=== PATIENT | female | born 1955 | race Caucasian/White ===

== ENCOUNTER 2016-09-13 15:54 | Inpatient (IN) | payer OTHER ==
--- NOTE | ~2016-09-13 | HP ---
History And Physical [address] [address] NAME: SHAHRAM JI : 57 STATUS : ADM IN [facility]#: [id number] AGE: 61 ADM/REG DATE : 09/13/16 MR#: [id number] REPORT SERV DATE: 09/13/16 DICTATED BY: DUNIA MELÉNDEZ DATE: 09/13/16 REPORT STATUS : Draft TRANSCRIBED BY: MODJazmin DATE: 09/13/16 DATE OF ADMISSION: 09/13/2016 CHIEF COMPLAINT: Increased shortness of breath, productive cough. HISTORY OF PRESENT ILLNESS: This patient is a 61-year-old female, who presented in [facility]'s emergency room with complaints of increased shortness of breath, stating recently diagnosed with pneumonia, completed two weeks of Levaquin and continued to have fever and chills, productive cough, shortness of breath, occasional chest pain, nausea. Denies vomiting. Does state that she has a headache and body aches. Does state that she is O2 dependent at home anywhere from 2-4 L on nasal cannula, at this time has had to increase to 4 L at home. Does state that she has had lightheadedness. The patient does present with a history of squamous cell carcinoma of the lung, stage IV. The patient is under the care of Dr. Martinez of [place], Oncology. Does state that she is on a clinical trial, last taken approximately three to four weeks prior to this admission. Does state that most recent CT of the chest approximately two to three weeks in Dr. Martinez's office. PAST MEDICAL HISTORY: 1. L5 compression fracture. 2. Squamous cell carcinoma of the lung, stage IV. 3. Chronic obstructive pulmonary disease. 4. Hypothyroidism. 5. Cardiomyopathy. 6. Transient ischemic attack. 7. Coronary artery disease, last echo in December 2014. Ejection fraction of 30% to 35%. PAST SURGICAL HISTORY: 1. Pacemaker. 2. AICD. 3. Colostomy for bowel obstruction secondary to adhesions. 4. Sigmoid colon torsion requiring hospitalization. 5. Hysterectomy. 6. Cholecystectomy. 7. Bronchoscopy. 8. Left thoracoscopy with left lower lobe superior segment bullectomy. ALLERGIES: 1. SULFA. 2. CLINDAMYCIN. 3. CODEINE. 4. TAXOL. 5. PHENERGAN. SOCIAL HISTORY: , previously smoked, quit in 2013. Occasional alcohol use. Denies illicit drug use. History And Physical [address] [address] NAME: SHAHRAM JI : 57 STATUS : ADM IN PAT#: [id number] AGE: 61 ADM/REG DATE : 09/13/16 MR#: [id number] REPORT SERV DATE: 09/13/16 DICTATED BY: DUNIA MELÉNDEZ DATE: 09/13/16 REPORT STATUS : Draft TRANSCRIBED BY: JOB DATE: 09/13/16 FAMILY HISTORY: The patient has a father, of colon cancer. Sister of lung cancer. Mother of liver cancer. REVIEW OF SYSTEMS: Otherwise negative review of system, except what is listed above. PHYSICAL EXAMINATION: VITAL SIGNS: Blood pressure 90/51, pulse is 129, respirations 16, and O2 saturation 98% on 2 L. GENERAL: This patient is alert and oriented x3, in no acute distress. HEENT: Oral mucous membranes are moist. Oropharynx is clear. NECK: No JVD distention. CHEST: Lungs diminished. No rhonchi. No wheezes. No rales. CARDIAC: The patient is tachycardic. ABDOMEN: Soft, nondistended. Bowel sounds are active. EXTREMITIES: No clubbing, cyanosis, or edema. NEUROLOGICAL: The patient is alert and oriented x3. IMAGING: Chest x-ray, stable left perihilar fibrosis/mass with trace left pleural fluid or pleural thickening. There is also a stable bullous lesion at the left lung apex. Minimum right basilar atelectasis. Otherwise right lung appears grossly clear. Stable left-sided AICD device and right chest Port-A-Cath device. LABORATORY DATA: WBC is 21.7, hemoglobin 12.1, hematocrit 36.7, platelet count is 394, lactate is 1.17. BNP is 37.3, procalcitonin is 0.11. Sodium is 135, potassium is 4.1, chloride is 99, carbon dioxide is 28, BUN is 10, creatinine 0.72, glucose is 116, calcium is 9.4, magnesium is 1.6. Troponin is less than 0.02. Influenza A and B negative. Urinalysis: Hazy appearance, leukocyte large, rbc 4, wbc 64, bacteria occasional. IMPRESSION AND PLAN: 1. Sepsis. The patient will be admitted to the hospital. The patient will be started on cefepime 1 g IV every six hours. Cultures will be obtained. CT of the chest will also be obtained. 2. Community-acquired pneumonia. The patient does state that she has been treated for approximately two weeks on Levaquin for pneumonia. We will change antibiotic to cefepime and continue to monitor. 3. Squamous cell carcinoma of the lung stage IV. The patient is followed by Dr. Martinez. Currently on a clinical trial. We will consult Dr. Martinez to follow patient during this hospital stay. 4. Chronic obstructive pulmonary disease. We will continue to monitor the patient's respiratory status. We will have the patient on albuterol inhalers every two hours p.r.n. for shortness of breath, nebulize treatments every six hours and continue to monitor. 5. History of cardiomyopathy. Continue to monitor the patient due to cardiac history. Last echocardiogram was noted in December 2014 of an ejection fraction of 30% to 35%. We will continue to monitor the patient due to her cardiac history. 6. Hypomagnesium. We will correct per electrolyte protocol. History And Physical [address] [address] NAME: SHAHRAM JI : 57 STATUS : ADM IN [facility]#: [id number] AGE: 61 ADM/REG DATE : 09/13/16 MR#: [id number] REPORT SERV DATE: 09/13/16 DICTATED BY: DUNIA MELÉNDEZ DATE: 09/13/16 REPORT STATUS : Draft TRANSCRIBED BY: MODL DATE: 09/13/16 7. The patient will be a full code. The patient will be followed by Dr. Nikita Castaneda during her hospital stay. [facility]/EVANL Dunia Meléndez NP / [id number] CC: MD Bahman Higgins D.O.
--- NOTE | ~2016-09-13 | DS ---
Discharge Summary [facility] [address] [place]. [address] NAME: SHAHRAM JI : 57 STATUS : DIS IN PAT#: [id number] AGE: 61 ADM/REG DATE : 09/13/16 MR#: [id number] REPORT SERV DATE: 09/18/16 DICTATED BY: DUNIA MELÉNDEZ DATE: 09/17/16 REPORT STATUS : Draft TRANSCRIBED BY: MODL DATE: 09/17/16 ADMISSION DATE: 09/13/2016 DISCHARGE DATE: 09/17/2016 DISCHARGE DIAGNOSES: 1. Sepsis, resolved. 2. Community-acquired pneumonia, improving. 3. Chronic obstructive pulmonary disease exacerbation, improving. 4. History of cardiomyopathy, stable. 5. Hypokalemia, resolved. 6. Hypomagnesium, resolved. IMAGIN. Chest x-ray, 09/13/2016; impression, stable left perihilar fibrosis/mass with trace left pleural fluid or pleural thickening. There is also a stable lesion at the left lung apex. Minimum right bibasilar atelectasis. Otherwise, the right lung appears grossly clear. 2. CT, 09/14/2016; impression, extensive consolidation in the right mid lung, including the upper and lower lobes, dense consolidation in the posterior left lung base. This has likely obscured visualization of underlying masses. A previously reported pleural- based cavitary lesion in the superior left lower lobe is obscured by consolidation in the current exam. New pleural-based masses in the left chest consistent with metastatic disease. Other pleural masses may be obscured by dense consolidation in the left mid lung and posterior left lung base. Increased mediastinal and right hilar adenopathy. Left adrenal nodule, not significantly changed. LABORATORY DATA: WBC 14.0, hemoglobin 11.3, hematocrit 35.2, and platelet count 474. Procalcitonin is less than 0.05. Sodium 140, potassium 3.6, chloride 106, CO2 is 24, BUN 8, and creatinine 0.39. Glucose is 80 and calcium is 9.0. HOSPITAL STAY: For course of hospital stay, please refer to history and physical dictated on 09/13/2016 for complete admission details. This patient is a 61-year-old female who presented to [facility]'s Emergency Room with complaints of increased shortness of breath and productive cough. The patient stated at time of admission she had been treated for approximately two weeks of Levaquin but continued to have low-grade fever and productive cough. 1. Sepsis. Patient was noted with low blood pressure, increased heart rate, WBC count of 21.7. The patient was admitted to the hospital. Laboratory data obtained. Cultures obtained. The patient was initially started on cefepime and vancomycin, this was changed to Augmentin upon discharge. The patient's heart rate and blood pressure did stabilize. The patient remained afebrile. 2. Community-acquired pneumonia. The patient did state upon admission that she had been on antibiotics for approximately two weeks prior to admission. The patient was initiated on vancomycin and cefepime and cultures were negative. The patient was transitioned to oral Augmentin which she has tolerated well. She will be discharged Discharge Summary [address] [address] NAME: SHAHRAM JI : 57 STATUS : DIS IN [facility]#: [id number] AGE: 61 ADM/REG DATE : 09/13/16 MR#: [id number] REPORT SERV DATE: 09/18/16 DICTATED BY: DUNIA MELÉNDEZ DATE: 09/17/16 REPORT STATUS : Draft TRANSCRIBED BY: JOB DATE: 09/17/16 home on oral antibiotics. 3. Chronic obstructive pulmonary disease, acute exacerbation. The patient was noted upon admission with expiratory wheezes. Initially started on Solu-Medrol, this was changed to prednisone 40 mg. the patient has been able to remain at baseline O2. She will be discharged home on nasal cannula, 3 L, to continue her prednisone p.o. tapering dose, she will also continue nebulizing treatments at home. 4. History of cardiomyopathy. The patient has been monitored throughout her stay. She has remained stable. 5. Hypokalemia. The patient's potassium was noted at 3.4, this was treated and resolved. The patient will continue home medications upon discharge. 6. Hypomagnesium. The patient's magnesium was noted at 1.7, this was corrected. The patient will continue home medications. DISCHARGE MEDICATIONS: 1. Augmentin 875 p.o. every eight hours. 2. Eliquis 5 mg one p.o. twice daily. 3. Tessalon Perles 200 mg p.o. three times daily. 4. Premarin 1.25 mg p.o. daily. 5. Neurontin 100 mg one p.o. three times daily. 6. Synthroid 75 mcg p.o. every morning. 7. Lidoderm topical patch daily. 8. Ativan 0.5 mg one p.o. twice daily p.r.n. for anxiety. 9. Ativan 0.5 mg p.o. at bedtime. 10.Potassium 20 mEq p.o. three times daily. 11.Senokot 3 tabs p.o. daily. 12.Spiriva inhaler one cap inhaled every day. 13.Ambien 12.5 mg p.o. at bedtime. 14.Albuterol inhaler 3 times daily as needed for shortness of breath. 15.Prednisone 40 mg p.o., tapering dose. 16.Atarax 25 mg one p.o. every eight hours. 17.MiraLAX one pack p.o. daily p.r.n. for constipation. 18.Magnesium oxide 40 mg one p.o. every morning. 19.Tylenol 500 mg one p.o. every eight hours p.r.n. for pain. 20.Ultram 50 mg one p.o. every eight hours p.r.n. for pain. 21.Zofran 8 mg one p.o. every eight hours p.r.n. for nausea. DISCHARGE PLANNING: The patient is being discharged home to continue antibiotics and prednisone tapering dose. It was discussed with the patient regarding home health versus hospice; this was discussed at great length with the patient and family members, questions have been answered. It was also discussed with patient regarding POLST forms, the patient does have a copy, was not filled out prior to discharge. At the time of the patient's hospital stay, the patient was a limited DNR, no chest compressions, and no intubation. The patient would like to discuss with family further, decision to be made and discussed with Dr. Martinez upon her followup appointment. Home health was being arranged for the patient, has not been arranged upon discharge, the patient did not want to wait, requested to be discharged home, and to continue working with her insurance upon discharge regarding home health versus hospice. Discharge Summary [address] [place]. [address] NAME: SHAHRAM JI : 57 STATUS : DIS IN PAT#: [id number] AGE: 61 ADM/REG DATE : 09/13/16 MR#: [id number] REPORT SERV DATE: 09/18/16 DICTATED BY: DUNIA MELÉNDEZ DATE: 09/17/16 REPORT STATUS : Draft TRANSCRIBED BY: JOB DATE: 09/17/16 This discharge took greater than 30 minutes. [facility]/JOB Dunia Meléndez NP / [id number] CC: MD Bahman Higgins D.O.
[2016-09-13 15:34] LABS: BASOPHILS 0.1 %; BASOPHILS ABSOLUTE 0.02 10/3/uL (0.0-0.16); EOSINOPHILS 2.7 %; EOSINOPHILS ABSOLUTE 0.58 10/3/uL (0.0-0.53); HEMATOCRIT 36.7 % (36.0-48.0); HEMOGLOBIN 12.1 g/dL (12.0-16.0); IMMATURE GRANULOCYTES 0.8 %; IMMATURE GRANULOCYTES ABSOLUTE 0.17 10/3/uL (0.0-0.11); LYMPHOCYTES 2.7 %; LYMPHOCYTES ABSOLUTE 0.58 10/3/uL (0.67-4.30); MANUAL DIFF NO %; MEAN CORPUSCULAR HEMOGLOB 29.7 pg (26.0-34.0); MEAN CORPUSCULAR VOLUME 90.2 fL (80-100); MEAN PLATELET VOLUME 8.5 fL (9.2-13.0); MONOCYTES 8.7 %; NEUTROPHILS ABSOLUTE 18.49 10/3/uL (2.02-8.40); PLATELET COUNT 394 10/3/uL (150-400); RED CELL COUNT 4.07 10/6/uL (4.0-5.6); WHITE BLOOD CELLS 21.7 10/3/uL (4.5-10.5)
[2016-09-13 15:45] LABS: INTERNATIONAL NORMAL RATI 1.9 UNITS (-)
[2016-09-13 15:46] LABS: PARTIAL THROMBO TIME 44.5 SEC (22.5-37.2); PROTIME (NOT ORD) 21.3 SEC (12.0-14.5)
[2016-09-13 15:47] LABS: BUN (BLOOD UREA NITROGEN) 10 MG/DL (6-23); CALCIUM, SERUM 9.5 MG/DL (8.5-10.4); CHEST PAIN PROFILE TAT 0 Hrs 19 Mins; CHLORIDE, SERUM 99 MMOL/L (96-112); CO2 (CARBON DIOXIDE) 28 MMOL/L (24-34); CREATININE 0.72 MG/DL (0.55-1.02); GFR AFRICAN AMERICAN 105 ML/MIN (>=60); GFR NON AFRICAN AMERICAN 91 ML/MIN (>=60); GLUCOSE, SERUM 116 MG/DL (60-99); POTASSIUM, SERUM 4.1 MMOL/L (3.5-5.3); SODIUM, SERUM 135 MMOL/L (135-148); TROPONIN I <0.02 NG/ML (<0.05)
[~2016-09-13 15:54] MED LIST: ACET500CAP PO; ALBUTEROL0.63 MG/3 INH; ALLEGRA180 PO; AMBIEN CR12.5 MG PO; ASA5GR PO; ATV.5 PO; C1 PO; C5 PO; CALCIUM PO; CALGLUCTAB PO; CHEMOTHERAPY IV; CONSTULOSE PO; COREG3 PO; CRESTOR10 PO; CRESTOR40 MG PO; DSS PO; HARD NAILS PO; IBU-200200 MG PO; IBU400 PO; KDUR20 PO; MAGNESIUM CITRATE PO; MEDROLPAK4 PO; MIRALAXPKT PO; MOTRIN IB200 MG PO; OPDIVO IV; OTC SINUS MED; P125 PO; PCET PO; POTASSIUM OTC PO; PRIN5 PO; PROVENTSOL INH; SPIRIVA INH; SUPER B COMP PO; SYMBICORT 160/41 INH INH; SYN.05 PO; ULTRAM50 PO; VITAMIN B-121000 MC1 SL; VITAMIN D1000 UNI1; VITAMIN D1000 UNI1 PO; VITC500 PO; ZOFRAN8 PO; roxicodone PO
[2016-09-13 15:55] LABS: LACTATE 1.7 MMOL/L (0.3-2.4)
[2016-09-13] MEDS ORDERED: NEUR100 PO (16:08)
[2016-09-13] MEDS ORDERED: AT25 PO (16:08)
[2016-09-13] MEDS ORDERED: SENTAB PO (16:09)
[2016-09-13] MEDS ORDERED: MIRALAX POWDER1 PKT PO (16:11)
[2016-09-13] MEDS ORDERED: SYN075 PO (16:11)
[2016-09-13] MEDS ORDERED: SPIRIVA INH (16:11)
[2016-09-13] MEDS ORDERED: TESSALON200 MG PO (16:12)
[2016-09-13] MEDS ORDERED: P125 PO (16:12)
[2016-09-13] MEDS ORDERED: AMBIEN CR12.5 MG PO (16:12)
[2016-09-13] MEDS ORDERED: ELIQUIS 5 MG TAB5 MG PO (16:12)
[2016-09-13] MEDS ORDERED: MAGOX4 PO (16:13)
[2016-09-13] MEDS ORDERED: KLOR-CON M2020 MEQ PO (16:13)
[2016-09-13] MEDS ORDERED: ALBUTEROL0.083 % INH (16:13)
[2016-09-13] MEDS ORDERED: ACET500CAP PO (16:13)
[2016-09-13] MEDS ORDERED: ATV.5 PO ×2 (16:14)
[2016-09-13] MEDS ORDERED: ULTRAM50 PO (16:14)
[2016-09-13] MEDS ORDERED: LEVAQUIN750 MG PO (16:15)
[2016-09-13] MEDS ORDERED: ZOFRAN8 PO (16:15)
[2016-09-13 16:17] LABS: PROCALCITONIN 0.11 ng/mL (<0.5)
[2016-09-13 16:23] LABS: INFLUENZA A SCREEN NEGATIVE (NEGATIVE); INFLUENZA B SCREEN NEGATIVE (NEGATIVE)
[2016-09-13 16:58] LABS: ASCORBIC ACID (UR NOT ORDER) NEG (NEG); BILIRUBIN, URINE NEGATIVE (NEG); ER URINALYSIS TAT 0 Hrs 07 Mins; KETONE, URINE NEGATIVE (NEG); NITRITE (URINE) NEG (NEG); WBC (NOT ORDERED) (RFLEX) 64 (0-5)
[2016-09-13 17:00] LABS: LEUKOCYTE ESTERASE(NOT OR LARGE (NEG)
[2016-09-14 07:31] LABS: BASOPHILS 0.1 %; BASOPHILS ABSOLUTE 0.02 10/3/uL (0.0-0.16); EOSINOPHILS 2.1 %; EOSINOPHILS ABSOLUTE 0.37 10/3/uL (0.0-0.53); HEMATOCRIT 29.9 % (36.0-48.0); HEMOGLOBIN 9.8 g/dL (12.0-16.0); IMMATURE GRANULOCYTES 0.4 %; IMMATURE GRANULOCYTES ABSOLUTE 0.08 10/3/uL (0.0-0.11); LYMPHOCYTES 4.2 %; LYMPHOCYTES ABSOLUTE 0.76 10/3/uL (0.67-4.30); MANUAL DIFF NO %; MEAN CORPUS HGB CONC 32.8 g/dL (32.0-36.0); MEAN CORPUSCULAR HEMOGLOB 29.5 pg (26.0-34.0); MEAN CORPUSCULAR VOLUME 90.1 fL (80-100); MEAN PLATELET VOLUME 8.4 fL (9.2-13.0); MONOCYTES 9.3 %; MONOCYTES ABSOLUTE 1.67 10/3/uL (0.21-1.20); NEUTROPHILS 83.9 %; NEUTROPHILS ABSOLUTE 15.04 10/3/uL (2.02-8.40); PLATELET COUNT 370 10/3/uL (150-400); RED CELL COUNT 3.32 10/6/uL (4.0-5.6); WHITE BLOOD CELLS 17.9 10/3/uL (4.5-10.5)
[2016-09-14 07:46] LABS: BUN (BLOOD UREA NITROGEN) 3 MG/DL (6-23); CALCIUM, SERUM 8.8 MG/DL (8.5-10.4); CHLORIDE, SERUM 102 MMOL/L (96-112); CO2 (CARBON DIOXIDE) 25 MMOL/L (24-34); CREATININE 0.47 MG/DL (0.55-1.02); GFR AFRICAN AMERICAN 124 ML/MIN (>=60); GFR NON AFRICAN AMERICAN 107 ML/MIN (>=60); GLUCOSE, SERUM 91 MG/DL (60-99); POTASSIUM, SERUM 3.4 MMOL/L (3.5-5.3); SODIUM, SERUM 137 MMOL/L (135-148)
[2016-09-15 06:16] LABS: BASOPHILS 0 %; EOSINOPHILS 0 %; HEMATOCRIT 28.6 % (36.0-48.0); HEMOGLOBIN 9.4 g/dL (12.0-16.0); IMMATURE GRANULOCYTES 0.5 %; IMMATURE GRANULOCYTES ABSOLUTE 0.05 10/3/uL (0.0-0.11); LYMPHOCYTES 3.6 %; LYMPHOCYTES ABSOLUTE 0.39 10/3/uL (0.67-4.30); MEAN CORPUS HGB CONC 32.9 g/dL (32.0-36.0); MEAN CORPUSCULAR HEMOGLOB 28.8 pg (26.0-34.0); MEAN CORPUSCULAR VOLUME 87.7 fL (80-100); MEAN PLATELET VOLUME 8.5 fL (9.2-13.0); MONOCYTES 3.1 %; MONOCYTES ABSOLUTE 0.34 10/3/uL (0.21-1.20); NEUTROPHILS 92.8 %; NEUTROPHILS ABSOLUTE 10.07 10/3/uL (2.02-8.40); PLATELET COUNT 377 10/3/uL (150-400); RBC DISTRIBUTION WIDTH 17.3 % (12.0-16.0); RED CELL COUNT 3.26 10/6/uL (4.0-5.6); WHITE BLOOD CELLS 10.9 10/3/uL (4.5-10.5)
[2016-09-15 06:20] LABS: MANUAL DIFF NO %
[2016-09-15 06:21] LABS: BUN (BLOOD UREA NITROGEN) 5 MG/DL (6-23); CALCIUM, SERUM 8.7 MG/DL (8.5-10.4); CHLORIDE, SERUM 107 MMOL/L (96-112); CO2 (CARBON DIOXIDE) 25 MMOL/L (24-34); CREATININE 0.36 MG/DL (0.55-1.02); GFR AFRICAN AMERICAN 136 ML/MIN (>=60); GFR NON AFRICAN AMERICAN 117 ML/MIN (>=60); POTASSIUM, SERUM 3.9 MMOL/L (3.5-5.3); SODIUM, SERUM 140 MMOL/L (135-148)
[2016-09-15 06:22] LABS: GLUCOSE, SERUM 133 MG/DL (60-99)
[2016-09-16 03:24] LABS: BASOPHILS 0.1 %; BASOPHILS ABSOLUTE 0.01 10/3/uL (0.0-0.16); EOSINOPHILS 0 %; HEMOGLOBIN 10.1 g/dL (12.0-16.0); IMMATURE GRANULOCYTES 0.5 %; IMMATURE GRANULOCYTES ABSOLUTE 0.07 10/3/uL (0.0-0.11); LYMPHOCYTES 2.3 %; LYMPHOCYTES ABSOLUTE 0.34 10/3/uL (0.67-4.30); MEAN CORPUS HGB CONC 31.9 g/dL (32.0-36.0); MEAN CORPUSCULAR HEMOGLOB 28.8 pg (26.0-34.0); MEAN CORPUSCULAR VOLUME 90.3 fL (80-100); MEAN PLATELET VOLUME 8.5 fL (9.2-13.0); MONOCYTES 4.2 %; MONOCYTES ABSOLUTE 0.62 10/3/uL (0.21-1.20); NEUTROPHILS 92.9 %; NEUTROPHILS ABSOLUTE 13.76 10/3/uL (2.02-8.40); PLATELET COUNT 449 10/3/uL (150-400); RBC DISTRIBUTION WIDTH 17.2 % (12.0-16.0); RED CELL COUNT 3.51 10/6/uL (4.0-5.6); WHITE BLOOD CELLS 14.8 10/3/uL (4.5-10.5)
[2016-09-16 03:25] LABS: HEMATOCRIT 31.7 % (36.0-48.0); MANUAL DIFF NO %
[2016-09-16 03:38] LABS: BUN (BLOOD UREA NITROGEN) 8 MG/DL (6-23); CALCIUM, SERUM 8.8 MG/DL (8.5-10.4); CHLORIDE, SERUM 109 MMOL/L (96-112); CO2 (CARBON DIOXIDE) 25 MMOL/L (24-34); CREATININE 0.48 MG/DL (0.55-1.02); GFR AFRICAN AMERICAN 124 ML/MIN (>=60); GFR NON AFRICAN AMERICAN 107 ML/MIN (>=60); POTASSIUM, SERUM 3.9 MMOL/L (3.5-5.3); SODIUM, SERUM 143 MMOL/L (135-148)
[2016-09-16 03:39] LABS: GLUCOSE, SERUM 185 MG/DL (60-99)
[2016-09-17 06:08] LABS: BASOPHILS 0.1 %; BASOPHILS ABSOLUTE 0.01 10/3/uL (0.0-0.16); EOSINOPHILS 0.6 %; EOSINOPHILS ABSOLUTE 0.08 10/3/uL (0.0-0.53); HEMOGLOBIN 11.3 g/dL (12.0-16.0); IMMATURE GRANULOCYTES 0.6 %; IMMATURE GRANULOCYTES ABSOLUTE 0.09 10/3/uL (0.0-0.11); LYMPHOCYTES 5.9 %; LYMPHOCYTES ABSOLUTE 0.82 10/3/uL (0.67-4.30); MEAN CORPUS HGB CONC 32.1 g/dL (32.0-36.0); MEAN CORPUSCULAR HEMOGLOB 29.4 pg (26.0-34.0); MEAN CORPUSCULAR VOLUME 91.7 fL (80-100); MEAN PLATELET VOLUME 8.4 fL (9.2-13.0); MONOCYTES 11.7 %; MONOCYTES ABSOLUTE 1.63 10/3/uL (0.21-1.20); NEUTROPHILS 81.1 %; NEUTROPHILS ABSOLUTE 11.33 10/3/uL (2.02-8.40); PLATELET COUNT 474 10/3/uL (150-400); RBC DISTRIBUTION WIDTH 17.2 % (12.0-16.0); RED CELL COUNT 3.84 10/6/uL (4.0-5.6)
[2016-09-17 06:09] LABS: HEMATOCRIT 35.2 % (36.0-48.0); MANUAL DIFF NO %
[2016-09-17 06:16] LABS: BUN (BLOOD UREA NITROGEN) 8 MG/DL (6-23); CHLORIDE, SERUM 106 MMOL/L (96-112); CO2 (CARBON DIOXIDE) 24 MMOL/L (24-34); CREATININE 0.39 MG/DL (0.55-1.02); GFR AFRICAN AMERICAN 132 ML/MIN (>=60); GFR NON AFRICAN AMERICAN 114 ML/MIN (>=60); POTASSIUM, SERUM 3.6 MMOL/L (3.5-5.3); SODIUM, SERUM 140 MMOL/L (135-148)
[2016-09-17 06:17] LABS: GLUCOSE, SERUM 80 MG/DL (60-99)
[2016-09-17 06:44] LABS: PROCALCITONIN <0.05 ng/mL (<0.5)
[2016-09-17] MEDS ORDERED: LIDODERM TOP (14:14)
[2016-09-17] MEDS ORDERED: P10 (14:15)
[2016-09-17] MEDS ORDERED: AUG875 PO (14:15)
== END 2016-09-17 16:04 | disposition home or self-care (01) | DRG 871 ==
LOC: ER 15:54 → 5SO 19:25
PROVIDERS: Emergency Medicine; Internal Medicine; Nurse Practitioner Adult Health
DX: A41.9 Sepsis, unspecified organism (principal); J18.9 Pneumonia, unspecified organism; I42.9 Cardiomyopathy, unspecified; J44.0 Chronic obstructive pulmonary disease with (acute) lower respiratory infection; E83.42 Hypomagnesemia; J44.1 Chronic obstructive pulmonary disease with (acute) exacerbation; E03.9 Hypothyroidism, unspecified; I25.10 Atherosclerotic heart disease of native coronary artery without angina pectoris; E87.6 Hypokalemia; Z66 Do not resuscitate; Z95.810 Presence of automatic (implantable) cardiac defibrillator; Z90.49 Acquired absence of other specified parts of digestive tract; Z98.890 Other specified postprocedural states; Z85.118 Personal history of other malignant neoplasm of bronchus and lung; Z86.73 Personal history of transient ischemic attack (TIA), and cerebral infarction without residual deficits; Z90.710 Acquired absence of both cervix and uterus; Z88.2 Allergy status to sulfonamides; Z88.1 Allergy status to other antibiotic agents; Z88.5 Allergy status to narcotic agent; Z88.8 Allergy status to other drugs, medicaments and biological substances; Z87.891 Personal history of nicotine dependence; Z80.0 Family history of malignant neoplasm of digestive organs; Z80.1 Family history of malignant neoplasm of trachea, bronchus and lung
CPT/HCPCS: 71010; 71260; 80048; 80202; 81001; 82533; 83605; 83735; 83880; 84145; 84484; 85025; 85610; 85730; 87040; 87086; 87804; 93005; 94640; 96365; 96367; 99285; A9270-GY; J0692; J1170; J2543; J2920; J3370; P9045; Q9967